=== PATIENT | female | born 1960 | race American Indian/Alaskan Native ===

== ENCOUNTER → 2018-05-17 16:30 | Outpatient (CLI) | payer SELFPAY ==
--- NOTE | 2018-05-17 | DI.RAD.S_ITS ---
PROCEDURE: XR CHEST 2V INDICATIONS: COUGH FOR 3 WEEKS TECHNIQUE: 2 views of the chest were acquired. COMPARISON: None. FINDINGS: Surgical changes and devices: None. Lungs and pleura: No pleural effusions or pneumothorax. Lungs are clear. Mediastinum: Mediastinal contours are normal. Heart size is normal. Bones and chest wall: No suspicious bony abnormalities. Soft tissues appear unremarkable. IMPRESSION: Mildly reduced inspiratory volume, no acute disease. Source of cough is not found. Dictated by: Nicho Berrios M.D. on 05/17/2018 at 17:00 Approved by: Nicho Berrios M.D. on 05/17/2018 at 17:01
== END ==
PROVIDERS: PCP Physician Assistant; Visit Provider Physician Assistant
DX: R05 Cough (principal)
CPT/HCPCS: 71046

== ENCOUNTER → 2020-04-07 10:14 | Outpatient (CLI) | payer OTHER, SELFPAY ==
--- NOTE | 2020-04-07 | DI.RAD.S_ITS ---
PROCEDURE: XR SHOULDER LT MIN 2V INDICATIONS: Pain in left shoulder TECHNIQUE: 3 views of the shoulder were acquired. COMPARISON: [facility], CR, XR CHEST 2V, 05/17/2018, 16:42. FINDINGS: Bones: No acute fractures or dislocations. Degenerative changes of the left acromioclavicular and glenohumeral joints. Coracoclavicular and acromioclavicular intervals are maintained. There appears to be subchondral degenerative cystic changes involving the left humeral head. No suspicious bony lesions. Visualized ribs appear intact. Soft tissues: No suspicious soft tissue calcifications. IMPRESSION: Left shoulder without acute radiographic abnormalities. Osteoarthritic changes of the left acromioclavicular and glenohumeral joints. Dictated by: Cesar Son M.D. on 04/07/2020 at 12:17 Approved by: Cesar Son M.D. on 04/07/2020 at 12:19
== END ==
PROVIDERS: PCP Physician Assistant; Referring Provider Family Medicine; Visit Provider Family Medicine
DX: M25.512 Pain in left shoulder (principal)
CPT/HCPCS: 73030

== ENCOUNTER → 2020-05-01 16:10 | Outpatient (CLI) | payer OTHER, SELFPAY ==
--- NOTE | 2020-05-01 16:16 | DI.RAD.S_ITS ---
PROCEDURE: XR SHOULDER LT MIN 2V INDICATIONS: RIGHT AND LEFT SHOULDER TECHNIQUE: 3 views of the shoulder were acquired. COMPARISON: [facility], , XR SHOULDER LT MIN 2V, 04/07/2020, 10:28. FINDINGS: Bones: No acute fracture. There is mild inferior subluxation of the glenohumeral joint. Soft tissues: There is mild calcific tendinitis of the rotator cuff. IMPRESSION: 1. Mild inferior subluxation of the left glenohumeral joint. 2. Mild calcific tendinitis of the rotator cuff. Dictated by: Kathleen Godwin M.D. on 05/01/2020 at 15:51 Approved by: Kathleen Godwin M.D. on 05/01/2020 at 15:53
--- NOTE | 2020-05-01 16:16 | DI.RAD.S_ITS ---
PROCEDURE: XR SHOULDER RT MIN 2V INDICATIONS: RIGHT AND LEFT SHOULDER TECHNIQUE: 3 views of the shoulder were acquired. COMPARISON: [facility], CR, XR SHOULDER LT MIN 2V, 04/07/2020, 10:28. FINDINGS: Bones: No fractures or dislocations. No suspicious bony lesions. Visualized ribs appear intact. Soft tissues: No suspicious soft tissue calcifications. IMPRESSION: No acute radiographic findings. Dictated by: Kathleen Godwin M.D. on 05/01/2020 at 15:53 Approved by: Kathleen Godwin M.D. on 05/01/2020 at 15:53
== END ==
PROVIDERS: PCP Physician Assistant; Referring Provider Chiropractor; Visit Provider Chiropractor
DX: S43.032A Inferior subluxation of left humerus, initial encounter (principal); M75.32 Calcific tendinitis of left shoulder; M25.512 Pain in left shoulder; M25.511 Pain in right shoulder; M99.02 Segmental and somatic dysfunction of thoracic region
CPT/HCPCS: 73030

== ENCOUNTER → 2020-06-24 12:25 | Outpatient (CLI) | payer OTHER, SELFPAY ==
--- NOTE | 2020-06-24 | DI.MRI.S_ITS ---
PROCEDURE: MR SHOULDER LT W CON INDICATIONS: LEFT SHOULDER PAIN TECHNIQUE: After the administration of 12 mL of dilute intra-articular Gadolinium contrast, oblique coronal T1 and T2 spin echo with fat saturation, oblique sagittal T1 spin echo with and without fat saturation, oblique sagittal T2 fast spin echo with fat saturation, axial T1 spin echo with fat saturation through the shoulder. COMPARISON: None. FINDINGS: Image quality: Severely motion degraded. Rotator cuff: There is supraspinatus tendinopathy, and thickening. There is low-grade partial-thickness bursal sided tear. No full-thickness defect is identified. Mild infraspinatus tendinopathy. Teres minor appears intact. Subscapularis tendon not well seen due to motion artifact and post-injection related sequela . No definite rotator cuff muscle atrophy. Bones and bursae: No bone marrow contusions or fractures. Mild acromioclavicular joint degeneration. Acromion demonstrates conventional anatomy, without an os acromiale. Mild subacromial-subdeltoid bursitis. Capsule and soft tissues: Labrum: Incidental superior labral sulcus is present, anatomic variant. There is also a possible inferior sublabral sulcus. Anterior labrum demonstrates poorly defined degeneration and fraying, which likely chronic and could be sequela of remote tear. Adjacent glenoid rim sclerosis. Blunted appearance of the posterior labrum also noted. Long head of the biceps tendon intact. The rotator interval appears normal, without fibrosis. Coracohumeral ligament intact. IMPRESSION: Supraspinatus tendinopathy and low-grade partial-thickness bursal sided tear. Mild infraspinatus tendinopathy. Mild subacromial-subdeltoid bursitis Chronic appearing tear versus versus advanced degeneration of the anterior labrum Dictated by: Ayush Ca M.D. on 06/24/2020 at 14:01 Approved by: Ayush Ca M.D. on 06/24/2020 at 14:10
--- NOTE | 2020-06-24 | DI.RAD.S_ITS ---
PROCEDURE: FL SHOULDER INJECTION MR/CT LT INDICATIONS: LEFT SHOULDER PAIN COMPARISON: None. TECHNIQUE: The indications, alternatives, benefits, risks, and complications of the procedure were explained to the patient. Written informed consent was obtained and placed in the chart. The shoulder was examined fluoroscopically and a site for needle placement chosen for entry into the glenohumeral joint from an anterior approach. The skin was prepped and draped in a sterile fashion, and 1% lidocaine infiltrated from skin down to joint capsule. A spinal needle was inserted into the glenohumeral joint, and a small amount of iodinated contrast media injected to confirm intra-articular placement of the needle tip. This was followed by approximately 12 mL dilute solution of a gadolinium containing MR contrast agent. The needle was removed and a dressing was applied. The patient was given postprocedural instructions and sent to the MR suite for MR imaging. FINDINGS: A single fluoroscopic spot image demonstrates intra-articular location of injected iodinated contrast. IMPRESSION: Successful fluoroscopically guided administration of dilute Gadolinium solution into the shoulder joint for MR arthrogram. Dictated by: Ayush Ca M.D. on 06/24/2020 at 14:15 Approved by: Ayush Ca M.D. on 06/24/2020 at 14:18
== END ==
PROVIDERS: PCP Physician Assistant; Referring Provider Family Medicine; Visit Provider Family Medicine
DX: M25.512 Pain in left shoulder (principal); M75.112 Incomplete rotator cuff tear or rupture of left shoulder, not specified as traumatic; M75.52 Bursitis of left shoulder; M19.012 Primary osteoarthritis, left shoulder
CPT/HCPCS: 23350; 73222; 77002

== ENCOUNTER → 2021-06-15 11:55 | Outpatient (CLI) | payer OTHER, SELFPAY ==
[2021-06-15 12:36] LABS: COVID19 -Nasal RAPID Negative (Negative)
== END ==
PROVIDERS: PCP Physician Assistant; Visit Provider Physician Assistant
DX: Z20.822 Contact with and (suspected) exposure to COVID-19 (principal)
CPT/HCPCS: 87635

== ENCOUNTER → 2021-06-30 13:04 | Outpatient (CLI) | payer OTHER, SELFPAY ==
[2021-06-30 13:46] LABS: COVID19 -Nasal RAPID Negative (Negative)
== END ==
PROVIDERS: PCP Physician Assistant; Referring Provider Nurse Practitioner Family; Visit Provider Nurse Practitioner Family
DX: R05.9 Cough, unspecified (principal); R09.81 Nasal congestion
CPT/HCPCS: 87635

== ENCOUNTER → 2022-07-05 12:13 | Outpatient (CLI) | payer OTHER, SELFPAY ==
--- NOTE | 2022-07-05 | DI.RAD.S_ITS ---
PROCEDURE: XR SHOULDER RT MIN 2V INDICATIONS: Bursitis of right shoulder TECHNIQUE: 3 views of the shoulder were acquired. COMPARISON: [facility], CR, XR SHOULDER RT MIN 2V, 05/01/2020, 16:04. FINDINGS: Bones: No fractures or dislocations. No suspicious bony lesions. Visualized ribs appear intact. Mild right acromioclavicular and glenohumeral joint osteoarthritis. Soft tissues: No suspicious soft tissue calcifications. IMPRESSION: No acute osseous lesion. If symptoms and/or clinical suspicion for pathology persists, further assessment with repeat radiographs (7-10 days) or advanced imaging (e.g. CT, MRI or bone scan) should be considered. Dictated by: Cee Wang MD, PhD on 07/05/2022 at 14:01 Approved by: Cee Wang MD, PhD on 07/05/2022 at 14:02
== END ==
PROVIDERS: PCP Physician Assistant; Referring Provider Family Medicine; Visit Provider Family Medicine
DX: M75.51 Bursitis of right shoulder (principal); M19.011 Primary osteoarthritis, right shoulder
CPT/HCPCS: 73030

== ENCOUNTER → 2022-08-01 11:08 | Outpatient (CLI) | payer OTHER, SELFPAY ==
--- NOTE | 2022-08-01 11:16 | DI.RAD.S_ITS ---
PROCEDURE: XR HAND RT MIN 3V INDICATIONS: NUMBNESS OF RIGHT HAND TECHNIQUE: 3 views of the hand(s) acquired. COMPARISON: None. FINDINGS: Bones: No fractures or dislocations. Carpal bones are normally aligned. No suspicious bony lesions. Distal interphalangeal joint space narrowing small marginal osteophytes noted. Generalized decrease in osseous mineralization noted. Soft tissues: No suspicious soft tissue calcifications. IMPRESSION: Osteopenia and DIP osteoarthritis Approved by: Jonathan Vila M.D. on 08/01/2022 at 17:16
== END ==
PROVIDERS: PCP Physician Assistant; Referring Provider Physician Assistant; Visit Provider Physician Assistant
DX: R20.0 Anesthesia of skin (principal); M85.841 Other specified disorders of bone density and structure, right hand; M19.041 Primary osteoarthritis, right hand
CPT/HCPCS: 73130

== ENCOUNTER → 2022-12-09 11:54 | Outpatient (CLI) | payer OTHER, SELFPAY ==
--- NOTE | 2022-12-09 | DI.RAD.S_ITS ---
PROCEDURE: XR WRIST LT MIN 3V INDICATIONS: left wrist pain, fall from ladder TECHNIQUE: For views of the wrist were acquired. COMPARISON: None. FINDINGS: Bones: Comminuted intra-articular fracture of distal radius is seen. Minimally displaced ulnar styloid fracture is also noted.. No suspicious bony lesions. Scaphoid view: Scaphoid is intact. Soft tissues: No suspicious soft tissue calcifications. IMPRESSION: Acute comminuted and slightly impacted distal radial intra-articular fracture and minimally displaced ulnar styloid fracture. No dislocation. Dictated by: Henry Ortega M.D. on 12/09/2022 at 14:41 Approved by: Henry Ortega M.D. on 12/09/2022 at 14:44
== END ==
PROVIDERS: PCP Physician Assistant; Referring Provider Family Medicine; Visit Provider Family Medicine
DX: S52.572A Other intraarticular fracture of lower end of left radius, initial encounter for closed fracture (principal); S52.615A Nondisplaced fracture of left ulna styloid process, initial encounter for closed fracture; W11.XXXA Fall on and from ladder, initial encounter; M25.532 Pain in left wrist
CPT/HCPCS: 73110

== ENCOUNTER → 2024-03-12 11:12 | Outpatient (CLI) | payer OTHER, SELFPAY ==
[2024-03-12 12:04] LABS: Add Manual Diff / Slide Review NO; Basophils Absolute Auto 0 /uL (0-100); Basophils Percent Auto 0.4 % (0-2); Eosinophils Absolute Auto 200 /uL (0-450); Hematocrit 38.9 % (36-46); Hemoglobin 13.1 g/dL (12.0-16.0); Lymphocytes Absolute Auto 2100 /uL (1100-4500); Lymphocytes Percent Auto 26.2 % (25-40); Mean Corpuscular HGB Conc 33.6 % (30-36); Mean Corpuscular Volume 83.4 fL (80-100); Monocytes Absolute Auto 500 /uL (0-900); Monocytes Percent Auto 5.7 % (3-14); Neutrophils Absolute Auto 5300 /uL (1500-7000); Neutrophils Percent Auto 64.7 % (50-75); Platelet Count 454 X10^3/uL (150-400); Red Blood Cell Count 4.67 X10^6/uL (4.0-5.2); Red Cell Distribution Width 14.4 % (11.6-14.8); White Blood Cell Count 8.1 X10^3/uL (4.5-11.0)
[2024-03-12 12:27] LABS: BUN Creatinine Ratio 11.3 (6-22); Blood Urea Nitrogen 9 mg/dL (7-17); Calcium 8.9 mg/dL (8.4-10.2); Carbon Dioxide 26 mmol/L (22-32); Chloride 105 mmol/L (98-107); Estimated Glomerular Filt Rate > 60 mL/min (>60); Glucose 98 mg/dL (80-110); HEMOLYSIS < 15 (0-50); Potassium 4.3 mmol/L (3.4-5.1); Sodium 137 mmol/L (137-145)
== END ==
PROVIDERS: Orthopaedic Surgery Orthopaedic Surgery of the Spine; PCP Physician Assistant; Referring Provider Internal Medicine; Visit Provider Internal Medicine
DX: Z01.812 Encounter for preprocedural laboratory examination (principal)
CPT/HCPCS: 36415; 80048; 85025

== ENCOUNTER 2024-03-18 08:41 | Day surgery (SDC) | payer OTHER, SELFPAY ==
[2024-03-13 12:40] VITALS: BMI 37.0
[2024-03-18] VITALS (13 sets, daily range): BP systolic 121–165; BP diastolic 64–88; PULSE 55–97; RESP 12–18; TEMP 36.1–36.6; O2SAT 95–98; BMI 37.0
[2024-03-18] MEDS: LACTATED RINGERS 1,000 ML 42 ML IV (09:49)
--- NOTE | 2024-03-18 10:32 | PM.PREOP ---
Pre-operative Note Interval Note History & Physical reviewed/Exam performed by Physician: Yes Changes to H&P: No
[2024-03-18] MEDS: CEFAZOLIN 2 GM/100 ML PREMIX 100 ML IV ×2 (10:50→19:56)
[2024-03-18] MEDS: ACETAMINOPHEN IV 1,000 MG/100 ML VIAL 400 MG IV (11:00)
--- NOTE | 2024-03-18 11:14 | SUR.OPER ---
Supine, head on gel donut. Arms padded with gel pads, tucked at sides, towel roll under shoulders. Safety belt at thigh. Legs uncrossed.
[2024-03-18] MEDS: BUPIVACAINE 0.25% W/ EPI (PF) 10 ML VIAL 20 ML INJ (11:17)
--- NOTE | 2024-03-18 12:48 | P.OP_ITS ---
Operative Date/Time/Diagnoses Date of procedure: 03/18/24 Time of procedure: 10:45 Pre-op diagnosis: 1. C5-6, C6-7 spinal stenosis 2. Cervical radiculopathy Post-op diagnosis: same Procedure & Clinicians Procedure: 1. C5-6 C6-7 anterior cervical diskectomy and fusion 2. C5-6 C6-7 anterior interbody cage placement 3. C5-6 C6-7 anterior instrumentation with plate and screw placement in C5-C6 and C7 vertebrae 4. Utilization of microsurgical technique and operating microscope Same procedure as scheduled: Yes Indications: Patient has been having chronic neck pain and worsening cervical radiculopathy. Patient was found to have C5-6 C6-7 right worse than left foraminal stenosis correlating with her symptoms. Patient failed multiple conservative management with worsening pain weakness and numbness in her upper extremity. Patient has been having difficulty performing activity of daily living. After discussing risks benefits of treatment options, patient elected proceed with surgery. Surgeon: Nicol Azar Flight Control Specialist: Rosa Elena Neal Click Yes if Unassisted: No Anesthesia Type: General Operative Notes Closure Type: primary Specimen(s): none sent Prosthetic devices, grafts, tissues, transplants, or devices: Globus Extend Plate, Hedron C cages Estimated Blood Loss (mL): 5 Procedure in detail: Patient was seen in the preoperative area. Risks and benefits of the surgery was discussed with the patient. Operative consent was obtained and placed in the chart. Patient was then taken to the operative room. Prophylactic antibiotic was given less than 0.5 hr prior to skin incision. General anesthesia was administered. Patient was placed into a supine position on her radiolucent table. Bilateral shoulders were taped down to allow proper C-arm imaging. Anterior cervical area was prepped and draped in a sterile fashion. Time-out was performed at this time. Using lateral C-arm imaging, the level between C5 and C7 was identified and marked on patient's neck. A oblique incision from midline towards medial border of sternocleidomastoid muscle was made. The platysma muscle was incised in line with skin incision. Metzenbaum scissor was used to develop the plane between the medial border of sternocleidomastoid d and the strap muscles medially. The carotid sheath and its contents were identified and protected behind the hand- held retractor during the entire case. The plane between the carotid sheath and strap muscles was developed with Metzenbaum scissors. Dissection was made down to the level of the anterior cervical fascia. Longus colli muscle was incised on the anterior aspect of vertebral bodies bilaterally from C5-C7. Spinal needle was placed into the C5-6 disc space and confirmed with lateral C-arm imaging. Using microsurgical technique and operative microscope, anterior cervical diskectomy was performed at C5-6 and C6-7 level. This was done by removing the disc material, removing the anterior and posterior osteophytes posterior longitudinal ligaments along with performing bilateral foraminotomies at both levels. Patient was found to have severe central and foraminal stenosis at both levels. Patient's stenosis was fully decompressed after decompression was completed. After the diskectomy was completed, 2 anterior interbody cages were obtained. The cages were packed with DBM bone grafting material. One cage each along with the bone grafting material was then packed into the interbody spaces from C5-C7 with one cage into each interbody level. After the cages were placed, the anterior cervical plate was stabilized to the C5-C7 vertebrae using 2 screws at each each level. Total 6 screws were placed. After confirming placement of the hardware with AP and lateral C-arm imaging, the screws were locked into the plate using the locking mechanism and torque limiting screwdriver. After the hardware was placed and confirmed with AP and lateral C-arm imaging, the wound was irrigated with sterile normal saline. The platysma muscle and the subcutaneous tissue was closed with 2-0 Vicryl. The skin was closed with 4-0 Monocryl and Steri-Strips. Patient tolerated the procedure well. Patient was transferred recovery room in stable condition. There were no complications. The Operation could not have been safely performed without compromising the technical result or length of the procedure, without the assistance of a skilled assistant professor of communication. The assistant professor of communication was medically necessary for proper positioning, retraction and manipulation of instruments, proper exposure, surgical preparation, and manipulation of tissue. Complications: none Post-operative Condition: stable Disposition: PACU Plan for aftercare: Discharge to home when criteria is met
--- NOTE | 2024-03-18 12:53 | DI.RAD.S_ITS ---
PROCEDURE: XR CERVICAL SPINE 2V OR 3V INDICATIONS: C5-6, C6-7 ACDF TECHNIQUE: 2 fluoroscopic spot images of the cervical spine were acquired. COMPARISON: Prior x-ray series January 11, 2023. Prior report is not available. FINDINGS / IMPRESSION: Frontal and lateral fluoroscopic spot images of the cervical spine are submitted. Postoperative changes status post 2 level anterior cervical discectomy and fusion reported as C5-6 and C6-7. Intubated. Fluoroscopic dose values are not delineated. Dictated by: Jose Armando Schroeder M.D. on 03/18/2024 at 12:59 Approved by: Jose Armando Schroeder M.D. on 03/18/2024 at 13:09
[2024-03-18] MEDS: OXYCODONE IR 5 MG TABLET PO ×4 (13:24→22:44)
[2024-03-18] MEDS: ONDANSETRON 4 MG/2 ML INJ IV (13:25)
--- NOTE | 2024-03-18 16:27 | OT.IPNOTE ---
Attempted to see pt for OT services. Pt states that she is feeling too tired at this time. Will hold and continue to follow.
[2024-03-18] MEDS: LACTATED RINGERS 1,000 ML 125 ML IV (16:35)
[2024-03-18] MEDS: SENNOSIDES 8.6 MG TABLET 17.2 MG PO (20:46)
[2024-03-18] MEDS: BENZOCAINE/MENTHOL 1 LOZ PKT 1 EACH PO (20:46)
[2024-03-18] MEDS: DOCUSATE 100 MG CAPSULE PO (20:46)
[2024-03-18] MEDS: ONDANSETRON 4 MG ODT SL (20:51)
[2024-03-19] VITALS: BP 134/63; PULSE 62; RESP 16; TEMP 36.6; O2SAT 98
[2024-03-19] MEDS: LACTATED RINGERS 1,000 ML 125 ML IV (00:31)
[2024-03-19] MEDS: CEFAZOLIN 2 GM/100 ML PREMIX 100 ML IV (02:43)
[2024-03-19] MEDS: OXYCODONE IR 5 MG TABLET PO ×3 (02:48→12:36)
[2024-03-19] MEDS: DOCUSATE 100 MG CAPSULE PO (08:31)
[2024-03-19] MEDS: ACETAMINOPHEN 325 MG TABLET 650 MG PO (08:31)
[2024-03-19] MEDS: ONDANSETRON 4 MG ODT SL (08:32)
[2024-03-19 08:43] VITALS: BP 120/48; PULSE 57; RESP 19; TEMP 36.4; O2SAT 97
--- NOTE | 2024-03-19 09:35 | OT.IP.EVAL ---
Current Diagnoses Other spondylosis with radiculopathy, cervical region (03/18/24) Spinal stenosis, cervical region (03/18/24) Surgery Performed Operation Date: 03/18/24 10:45 Actual Procedures p C5-6, C6-7 ACDF with anterior instrumentation - Nicol Azar MD Past Medical History (Last Updated 03/13/24 @ 12:30 by Yun Atkins, RN) Hand fracture, right Spinal stenosis Wrist fracture, left (12/09/22) Surgical History (Last Reviewed 03/18/24 @ 09:41 by Angie Javier, VAN) History of tonsillectomy Occupational Therapy Inpatient Evaluation/Re-Eval M1 PT/OT-IP Prior Functional Status Start: 03/19/24 09:45 Freq: NEEDED Status: Active Protocol: Document 03/19/24 09:45 [facility] (Rec: 03/19/24 09:55 [facility] [id number]) Medical Review Prior Functional Status Communication Independent Mobility and Gait Independent Activities of Daily Living and IADL's Independent Prior Functional Level (Other details) Pt's son and DIL to assist. Social History Household Members children Living Arrangements House Number of Floors (Floors) One Floor Number of Stairs To Enter/Railing? No steps to enter. Home Environment Standard Height Toilet,Tub/ Shower Home Equipment Hand Held Shower Additional Social History Comment Pt states to sleep in a recliner initially. M2 OT-IP Current Condition Start: 03/19/24 09:45 Freq: Status: Active Protocol: Document 03/19/24 09:45 [facility] (Rec: 03/19/24 09:55 [facility] [id number]) Occupational Therapy Current Condition Current Condition Evaluation Date 03/19/24 Treatment Diagnosis S/P C5-7 ACDF Diagnosis Onset Date 03/18/24 Post Operative Precautions Cervical Spine Precautions Soft Collar for Comfort,No Heavy Lifting,Log Roll M3 OT- IP Subjective and Pain Start: 03/19/24 09:45 Freq: Status: Active Protocol: Document 03/19/24 09:45 [facility] (Rec: 03/19/24 09:55 [facility] [id number]) OT- Subjective Occupational Therapy Visit Type Type Initial Evaluation Visit Start Time 08:45 Visit Stop Time 09:18 Occupational Therapy Visit Comments Patient Comments Pt agreed to get up and get dressed. Patient/Caregiver Goals TO go home. OT Pain Assessment Pain When Pain Assessed During Mobility Pain Present Pain Present Pain Reported Location Anterior Neck Intensity 6 Scale Used Numeric (0 - 10) M4 OT- IP ADL's Start: 03/19/24 09:45 Freq: Status: Active Protocol: Document 03/19/24 09:45 [facility] (Rec: 03/19/24 09:55 [facility] [id number]) OT [id number] Comments OT Self-Feeding Comments Educated to eat while upright , chew food throughly, and other information after ACDF for swallowing needs. OT ADL-Grooming General Evaluation Grooming Ability Minimal Assistance Comments OT Grooming Comments Pt needing assist to brush the back of her hair. OT ADL-Oral Care General Eval Oral Care Ability Independent Comments Oral Care Comments Cues to spit into a cup or hinge at her hips to spit. OT ADL-Dressing General Eval Upper Body Dressing Ability Independent, pt able to independently palomo/doff soft collar. Lower Body Dressing Ability Standby Assistance Comments OT Dressing Comments VC to sit for dressing needs for safety and to be mindful of her neck positioning needs. OT ADL-Toileting Comments OT Toileting Comments Suggested may be easier to stand and wipe to better follow her cervical precautions. Use of night light and taper water drinking at night. OT ADL-Bathing Comments OT Bathing Comments Suggested may be best to sit for showering needs and have assist for safety. M5 OT- IP IADL's Start: 03/19/24 09:45 Freq: Status: Active Protocol: Document 03/19/24 09:45 [facility] (Rec: 03/19/24 09:55 [facility] [id number]) OT-Instrumental Activities of Daily Living Home Safety Awareness Awareness of Need for Assistance at Home Good Awareness Ability to Problem Solve Emergency Able to Problem Solve Situations Medication Management Medication Management No Deficits Identified Money Management Money Management No Deficits Identified Meal Preparation Meal Preparation Caregiver Provides Assist Store Coordinator Store Coordinator Caregiver Provides Assist M6 OT- IP Functional Cognition Start: 03/19/24 09:45 Freq: Status: Active Protocol: Document 03/19/24 09:45 [facility] (Rec: 03/19/24 09:55 [facility] [id number]) Cognitive Factors Limiting Selfcare Function Cognitive Ability Level of Alertness Alert Patient Orientation Name,Age,Birthday,Month,Date, Year,Day of Week,Place, Situation Attention Span Ability Capable of Focused Attention, Capable of Sustained Attention Ability to Follow Commands Able to Follow Multi-Step Commands Safety Awareness Underestimates Need for Assistance Cognitive Comments Cognitive Assessment Comments Intact, just mainly needing cues to slow down and sit for dressing needs. OT- Vision and Hearing OT- Hearing Assessment OT- Hearing Assessment Hearing Impaired,Use of Hearing Aids OT- Vision Assessment Visual Acuity Glasses All The Time Vision Assessment Comments Glasses not in the hospital. Pt complaining of a headache from not sleeping well. BP 131 /51 O2 on RA 94%. M7 OT- IP Mobility and Balance Start: 03/19/24 09:45 Freq: Status: Active Protocol: Document 03/19/24 09:45 [facility] (Rec: 03/19/24 09:55 [facility] [id number]) OT- Bed Mobility Assessment Supine to Sit Supine to Sit Assist Standby Assistance Sit to Supine Sit to Supine Assist Standby Assistance OT-Transfer Assessment Sit to and From Stand Sit to and from Stand Independent Transfers Transfer Ability Independent Technique Transfer Destination Bed,Chair Devices Transfer Assistive Devices None Comments Mobility Comments SBA for bed mobility and when up on her feet in the room. OT- Balance Assessment Sitting Balance and Reactions Static Sitting Balance Ability Normal Dynamic Sitting Balance Ability Normal Standing Balance and Reactions Static Standing Balance Ability Normal Dynamic Standing Balance Ability Good M8 OT- IP Objective Assessments Start: 03/19/24 09:45 Freq: Status: Active Protocol: Document 03/19/24 09:45 [facility] (Rec: 03/19/24 09:55 [facility] [id number]) OT Gross Range of Motion Upper Extremity Range of Motion Assessment Within Functional Limits OT Strength Comments Strength Comments NT due to sx. OT Sensation Assessment Comments Summary Comments Pt states has increased sensation with right hand already. M9 OT- IP Assessment and Plan Start: 03/19/24 09:45 Freq: Status: Active Protocol: Document 03/19/24 09:45 [facility] (Rec: 03/19/24 09:55 [facility] [id number]) OT Summary Assessment and Plan Potential Rehabilitation Potential Excellent Analytic Complexity at Evaluation Low Summary OT Impairments Pain,Balance,Functional Mobility,Dressing,Bathing Progress Towards Goals Progressing Toward Goals Assessment Summary Pt low complexity and main barriers are pain, and will benefit from showering and ADL needs from her family. Pt to go home with her family when medically stable. Frequency of Treatment Frequency Of Treatment Discharge Discharge Recommendations OT Discharge Recommendations Home with Assistance Home Equipment Needs shower chair? Transportation Needs at Discharge Private Vehicle
--- NOTE | 2024-03-19 10:40 | CM.DANOTE ---
Initial DCP Assessment Visit Note Reviewed EMR and team rounds for status updates. Went to meet with pt at bedside, however she was found to be sound asleep at the time of this visit. Pt lives independently in he own home with family in [place] at baseline. She has been medically cleared for home d/c today, her son and [id number] will plan to transport her after cg training with PT. No CM needs were identified for d/c assistance at this time. Payor: Healthcare Management, [facility] Attending: Dr. Azar Pt is a 64 year-old F post-op day 1 from a cervical fusion surgery. She has a hx of worsening neck and R-arm pain that radiates down to her thumb. Numbness, tingling, and pain have significantly impacted her ability to manage her ADL's independently, and conservative measures such as pain injections and exercise modification have not had any lasting benefit. She did not have any postoperative complications and is expressing that her pain is well managed at this time. DCP will continue to follow and assist with any further evolving needs prior to her d/c. Discharge Planning/Care Management CM Discharge Assessment Start: 03/19/24 10:38 Freq: Status: Active Protocol: Document 03/19/24 10:39 DPL (Rec: 03/19/24 10:40 DPL [id number]) Discharge Planning Assessment Assigned Data Support Analyst SAMI Ott Advance Directives? No History Provided By Medical Record Expected Length of Stay 1 Has Patient been admitted in last 30 No days? Prior Living Arrangements House Household Members children Type of transporation used prior to Drives own vehicle admit Independent with ADL's Yes Is patient alert and oriented? Yes Caregiver for Another No DME Already Rented / Owned Bath Bench,Elevated Toilet Seat Comment No identified home d/c needs at this time. Barriers to Discharge No Discharge Plan Home Community Services Physical Therapy Transportation Arrangement famiy Referrals Initiated None needed Whiteboard Updated in Patient Room with Yes name and ext. # of Data Support Analyst Review Status In Process Please Provide Date Initial DC 03/19/24 Assessment Was Performed Pre-Anesthesia Assessment Start: 03/13/24 12:40 Freq: Status: Complete Protocol: Document 03/13/24 12:40 LB (Rec: 03/13/24 13:24 LB [id number]) Pre-Anesthesia Assessment Patient Information Reviewed Via Phone Assessment Assessment Completed With Patient Diagnostic Results BMP/CMP,CBC Comment 03/12/24 at Primary Care Provider Leila Cuello Medical Clearance Received Not Applicable Seen Specialist in Last 12 Months Yes Specialist Seen Orthopedist Primary Language Syriac Preferred Language Syriac Assistant Merchandiser Required No Height 152.4 cm Weight 86.183 kg Body Mass Index (BMI) 37.0 Hearing Ability Use of Hearing Aid Visual Assist Glasses Dentition Type Teeth, Natural Present Other Aids No Hx Anesthesia Reactions No: no surgical history identified. 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 Musculoskeletal Symptoms Neck Pain,Numbness,Radiating Pain into Limb,Tingling History of Falling (Recent or History of No ) Patient is completely paralyzed or No completely immobile Mental Status Oriented to own ability Is patient on oxygen? No Does patient have MOLINA/SOB No Hx Sleep Apnea No CPAP/BIPAP use not prescribed Currently Taking a Beta Will No Can You Climb a Flight of Stairs Without Yes SOB Hx Chest Pain No Hx SOB No Hx Syncope or Dizziness No Anti-Coagulant Therapy No Cardiac Testing No Cardiac Clearance Received Not Applicable Dysphagia No Bladder Pattern Nocturia Urinary Catheter Present No Hx Urinary Self Catheterization No Diabetes No Patient No Lactating No Hx Drug Resistant Organism No Presence of External or Internal Medical No Devices Have you had any close contact with No someone diagnosed with COVID-19? Are you experiencing any of these No symptoms symptoms? Lives With children Current Living Arrangements House Number of Floors (Floors) One Floor Number of Stairs To Enter/Railing? 0 steps Support System Child/Children Does the Patient Have Assistance After Yes Surgery Patient Discharge Plan Description Return Home Feels Safe in Current Environment Yes Do you have a plan to hurt yourself or No Plan others? Do You Have Any Spiritual Beliefs That No May Affect Your HC Choices? Who Can We Speak to About Patient's Care family/friends Health Care Proxy/Next of Kin Sabine Bell - mother Health Care Proxy Emergency Contact Name Sabine Bell - mother Emergency Contact Advance Directives? No PAC Instructions Assistance for 24 hours post- op,Medications to take/avoid, No ETOH/petroleum product on skin DOS,NPO,Post-op transportation,Pre-surgical wash,Sensory aids,Sturdy shoes /comfortable clothes,Do not bring valuables and remove jewelry
--- NOTE | 2024-03-19 10:41 | P.DS_ITS ---
History of Present Illness History of Present Illness Date Patient Seen: 03/19/24 Time Patient Seen: 07:30 Chief complaint: OPB Narrative: Patient has been having chronic neck pain and worsening cervical radiculopathy. Patient was found to have C5-6 C6-7 right worse than left foraminal stenosis correlating with her symptoms. Patient failed multiple conservative management with worsening pain weakness and numbness in her upper extremity. Patient has been having difficulty performing activity of daily living. After discussing risks benefits of treatment options, patient elected proceed with surgery. Discharge Providers Provider Date of admission: 03/18/24 Discharge Date: 03/19/24 Primary care physician: Iram Christensen PA-C Consults: 03/18/24 13:47 Consult to Occupational Therapy Evaluate & Treat Comment: Physician Instructions: Evaluate and treat Consult to Physical Therapy Evaluate & Treat Comment: Physician Instructions: Evaluate and Treat Discharge provider: Rajiv Gaona PA-C Summary Hospital Course Discharge Diagnosis: 1. C5-6, C6-7 spinal stenosis 2. Cervical radiculopathy Hospital Course: Procedure & Clinicians Procedure: 1. C5-6 C6-7 anterior cervical diskectomy and fusion 2. C5-6 C6-7 anterior interbody cage placement 3. C5-6 C6-7 anterior instrumentation with plate and screw placement in C5-C6 and C7 vertebrae 4. Utilization of microsurgical technique and operating microscope Same procedure as scheduled: Yes Surgeon: Nicol Azar Loan Coordinator: Rosa Elena Christianson Yes if Unassisted: No Anesthesia Type: General Operative Notes Closure Type: primary Specimen(s): none sent Prosthetic devices, grafts, tissues, transplants, or devices: Globus Extend Plate, Hedron C cages Estimated Blood Loss (mL): 5 Status at Discharge Cognitive/behavioral status at discharge: oriented Functional status at discharge: independent ambulation Overall status at discharge: patient is back to baseline Time Spent with Patient Time spent: Less than 30 minutes Exam Vital Signs (past 8 hours): - 03/19/24 04:00 03/19/24 08:43 Temperature 97.5 F L Pulse Rate 57 L Respiratory Rate 19 Blood Pressure 120/48 L Pulse Oximetry 97 Oxygen Flow Rate 0 0 Oxygen Delivery Method Nasal Cannula Oxygen Flow Rate 0 Narrative Exam Narrative: Patient found resting comfortably in bed. Pain controlled with oral medications. Dressing is clean dry and intact. Sensation intact to light touch to bilateral upper extremities. Full range of motion of the upper extremities. Functional Support Analyst strength 5/5 bilaterally. [facility] Medical History (Updated 03/13/24 @ 12:30 by Yun Atkins, RN) Spinal stenosis Wrist fracture, left (12/09/22) Hand fracture, right Surgical History History of tonsillectomy Social History household members: children Smoking Status: Current every day smoker alcohol intake: current Discharge Assessment & Plan Assessment and Plan Assessment: Status post C5-6, C6-7 ADCF Plan of Treatment: Discharge to home. Baseline pain control with acetaminophen 500 mg q.4 hours PRN. Breakthrough pain with oxycodone 5 mg q.4 hours PRN. Postoperative nausea and spasm with hydroxyzine 25 mg Q 8 hours as needed. No lifting more than 10 lb. Keep dressing clean and dry. Follow up in 2 weeks for wound check at clinic. Discharge Plan Discharge Plan Patient Disposition: Home Provider Discharge Comment: Pain meds sent to pts pharmacy from office at time of preop visit. Discharge orders & Medications Discharge Orders: Discharge (Order); Ordered 03/19/24 Ordered By: Rajiv Gaona Prescriptions: Continued albuterol sulfate 90 mcg/actuation HFA aerosol inhaler 1 inh inhalation ONCE PRN (Reason: Wheezing) liraglutide [Victoza 2-Dominik] 0.6 mg/0.1 mL (18 mg/3 mL) Pen Injector 1.2 mg SUBCUT DAILY Patient Comments: OK to take up to day of surgery per surgeons office (CINDY Steward) Follow up/Referrals: Nicol Azar MD [Physician] - 03/29/24 10:30 am (Follow up w/ Jack Gaona PA-C, at [facility] office in [place].) Iram Christensen PA-C [Primary Care Provider] - Diet/Activity/Treatments Diet: Diet as Tolerated Diet comment: Start with soft foods. Cool or cold fluids or food will be soothing. Activity: Soft collar is for comfort only; may have off if not comfortable. No lifting over 10#. Cold/Heat Therapy: Heating pad to back of neck and between shoulder blades as needed for pain. Ice pack to the front of the throat. Skin/Wound/Dressing Care Report to your healthcare provider any signs of infection, such as:: chills, fever, night sweats, unusual drainage and unusual redness Dressing: May shower. Leave dressing in place until follow up in office. If dressing becomes wet inside, may remove but leave steri-strips in place until follow up. Visit Report/Discharge Packet Instructions: How to Prevent Falls, DI for Nausea -- Adult, DI for Prescription Opioid Use, DI for Anterior Cervical Discectomy and Fusion Stand Alone Forms: Patient Portal/API, Surgery Discharge Discharge Data Primary Care Provider: Iram Christensen Attending Provider: Nicol Azar
--- NOTE | 2024-03-19 13:14 | PT-IP ANOTE ---
PT eval received and EMR reviewed. OT informed PT that pt is moving well and does not any PT. checked on pt and confirmed that she does not think she needs PT and will have assistance at home.
--- NOTE | 2024-03-19 14:47 | PC.NURSE ---
Discharge: Seen by PA and given d/c instructions. Seen by PT/OT and given instructions. Pt is voiding w/out diff. Some nausea this am, given sl zofran which was effective and she reports she already has some at home. She was able to tolerate diet. She has already picked up her scripts and has them. Reviewed discharge packet. Questions answered. Pt d/c to home via auto with her mother. Voiced no complaints.
== END 2024-03-19 13:20 | disposition home or self-care (01) ==
LOC: OR 08:42 → AC 08:42
PROVIDERS: PCP Physician Assistant; Referring Provider Orthopaedic Surgery Orthopaedic Surgery of the Spine; Visit Provider Orthopaedic Surgery Orthopaedic Surgery of the Spine
PROC: (CPT 22551; principal; 2024-03-18 10:45)
DX: M48.02 Spinal stenosis, cervical region (principal); M47.22 Other spondylosis with radiculopathy, cervical region; M25.78 Osteophyte, vertebrae
CPT/HCPCS: 22551; 22853 ×2; 22552; 72040; 76000; 97165; 97530; 97535; C1713; J0136; J0690; J1100; J1170; J2405; J2704; J3010